=== PATIENT | female | born 1985 | race African-American/Black ===

== ENCOUNTER 2016-11-07 14:13 | Emergency (ER) | payer MEDICAID ==
[2012-03-14 13:46] VITALS: BMI 22.0
[2016-11-07 16:28] LABS: BASOPHILS 0.4 % (0.0-2.0); HEMATOCRIT 30.4 % (36.0-48.0); HEMOGLOBIN 9.1 g/dL (12-16); IMMATURE GRANULOCYTES 0.7 % (0-5); LYMPHOCYTES 20.3 % (15-50); MCH 25.1 pg (26.0-34.0); MCHC 29.9 g/dL (31.0-37.0); MCV 83.7 fL (80.0-100.0); MEAN PLATELET VOLUME 10.4 fL (7.4-10.4); MONOCYTES 5.8 % (2-11); NEUTROPHILS 69.8 % (40-80); RBC 3.63 10x6/uL (4.00-5.40); RDW 15.9 % (11.5-14.5)
[2016-11-07 16:43] LABS: APPEARANCE HAZY (CLEAR); BILIRUBIN NEGATIVE (NEGATIVE); COLOR YELLOW (YELLOW); GLUCOSE NEGATIVE (NEGATIVE); KETONE NEGATIVE (NEGATIVE); LEUKOCYTE ESTERASE TRACE (NEGATIVE); NITRITE NEGATIVE (NEGATIVE); PROTEIN TRACE mg/dL (NEGATIVE); UROBILINOGEN NORMAL (NORMAL)
[2016-11-07 16:44] LABS: RED CELLS - URINE >50 /hpf (0-5)
[2016-11-07 16:45] LABS: BACTERIA MANY /hpf (NONE SEEN); MUCUS <1+ /lpf (NONE SEEN); PLATELET COUNT 184 10x3/uL (130-400)
[2016-11-07 17:27] LABS: HCG SERUM POSITIVE (NEGATIVE)
== END 2016-11-07 18:13 | disposition home or self-care (01) ==
LOC: D.ER 14:13
PROVIDERS: Nurse Practitioner Family
DX: N39.0 Urinary tract infection, site not specified (principal); R10.9 Unspecified abdominal pain; K59.00 Constipation, unspecified